=== PATIENT | female | born 1975 | race Caucasian/White ===

== ENCOUNTER 2021-06-23 14:28 | Emergency (ER) | payer OTHER ==
[2021-06-23 17:12] LABS: BASOPHIL 0.4 % (0-2); HCT 42.6 % (37.0-47.0); HGB 13.4 g/dl (12.5-16.0); LYMPHOCYTE 26.9 % (15-48); MCH 27.9 pg (25.0-31.0); MCHC 31.5 g/dL (32.0-36.0); MCV 88.6 fL (78.0-100.0); MONOCYTE 6.7 % (0-12); MPV 10.7 fL (6.0-9.5); NEUTROPHIL 61.6 % (41-80); NRBC 0; PLT 410 K/uL (150-400); RBC 4.81 M/uL (4.20-5.40); RDW 13.5 % (11.5-14.0); WBC 10.3 K/uL (4.0-10.5)
[2021-06-23 17:25] LABS: BUN/CREAT RATIO (CALC) 17.3 RATIO; CREATININE 0.75 mg/dL (0.51-0.95); POTASSIUM 4.3 mmol/L (3.5-5.1)
== END 2021-06-23 19:24 | disposition home or self-care (01) ==
LOC: FER 14:28
PROVIDERS: Nurse Practitioner Family
DX: U07.1 COVID-19 (principal); I10 Essential (primary) hypertension; J45.909 Unspecified asthma, uncomplicated; Z23 Encounter for immunization; Z88.5 Allergy status to narcotic agent
CPT/HCPCS: 36415; 71045; 80048; 85025; J1100; J7030; M0243; Q0244